=== PATIENT | female | born 1955 | race Caucasian/White ===

== ENCOUNTER → 2016-05-18 | Outpatient (CLI) | payer MEDICARE, MEDICAID ==
[~2016-05-18] MED LIST: ALPRAZOLAM0.5 MG PO; ARIPIPRAZOLE5 MG PO; ASPIRIN LO-DOSE81 MG PO; BACTRIM DS1 TAB PO; CARAFATE1 GM PO; CHANTIX1 MG PO; DILAUDID 4MG4 MG PO; FETZIMA40 MG PO; FLOXIN10 ML OTIC; PERCOCET 5-3251 EACH PO; PROTONIX40 MG PO; ROXICODONE 5MG (5 MG PO; TOPROL XL25 MG PO; ZOCOR20 MG PO; ZOFRAN ODT4 MG SL
[2016-05-18 13:43] LABS: CREATININE 0.8 mg/dL (0.5-1.1)
[2016-05-18 13:44] LABS: ESTIMATED GFR (MDRD EQUATION) > 60
== END | disposition disaster alternative care site (69) ==
LOC: GLAB 12:51
PROVIDERS: Otolaryngology
DX: H61.891 Other specified disorders of right external ear (principal)
CPT/HCPCS: Q9967

== ENCOUNTER → 2016-09-13 | Day surgery (SDC) | payer MEDICARE, MEDICAID ==
[~2016-09-13] VITALS: Ht 161.3 cm; Wt 84.0 kg
--- NOTE | ~2016-09-13 | OR ---
PATIENT'S NAME: [facility] AGE: 61 Y [address] ROOM: [place] [address] LOCATION: [facility] [place] ADMIT DATE: 09/13/2016 OR/Procedure Report DISCHARGE DATE: FAMILY PHYSICIAN: Christen Mcdonough MD ATTENDING PHYSICIAN: TAMI EMMANUEL SURGEON: Tami Emmanuel MD BRICK CLEANER: Ean Pineda. DATE OF PROCEDURE: 09/13/2016 PREOPERATIVE DIAGNOSES: 1. Right chronic mastoiditis. 2. Right chronic otitis externa. 3. 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 POSTOPERATIVE DIAGNOSES: 1. Right chronic mastoiditis. 2. Right chronic otitis externa. 3. 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 PROCEDURE: 1. Right modified radical canal wall down tympanomastoidectomy. 2. Right canal plasty. 3. Right meatoplasty. 4. Three hours of NIM monitoring of the right facial nerve. ANESTHESIA: General endotracheal. COMPLICATIONS: None. ESTIMATED BLOOD LOSS: 50 mL. FINDINGS: 1. Extensive erosion of the inferior auditory canal towards the facial nerve and jugular bulb including a portion of the tip of the mastoid and entering into the hypotympanum. 2. Facial nerve was not violated during the procedure. 3. Chorda tympani was identified and left intact. 4. Tympanic membrane was raised, but not otherwise violated, and there was no perforation. 5. There was no evidence of cholesteatoma aditus ad antrum, middle ear, or mastoid cavity. SPECIMEN: Right mastoid contents. INDICATIONS: The patient is a 61-year-old female who has been followed in PATIENT'S NAME: [facility] AGE: 61 Y [address] ROOM: [place] [address] LOCATION: [facility] [place] ADMIT DATE: 09/13/2016 OR/Procedure Report DISCHARGE DATE: FAMILY PHYSICIAN: Christen Mcdonough MD ATTENDING PHYSICIAN: TAMI EMMANUEL clinic for a period of time with the chronic right otitis externa. She was found to have significant purulent debris as well as necrotic sequestra of bone and an eroded inferior auditory canal. This failed management with outpatient antibiotics and topical antibiotics. This also returned as nonmalignant on biopsy. Given its chronicity and concern for future rotation, we decided to perform surgery as listed above and we did describe the risks, benefits, and alternatives and she provided informed consent. She was identified to have an oxygen saturation hovering in the 88% to 89% range in the preoperative area. She does have a history of smoking; however, we did offer to postpone her surgery and optimize for pulmonary health. She desired to the risk and possible need for ventilation postoperatively as well as inpatient admission to have the surgery done today and we elected to proceed after thorough discussion. DESCRIPTION OF PROCEDURE: The patient was brought from the preoperative area to the operating suite and placed on table supine position. All pressure points were padded. Time-out was performed correctly identifying the patient and the procedure. General endotracheal anesthesia was initiated and the patient was rotated 180 degrees counterclockwise. The ear canal was approached non-sterilely with microscope cleansed of cerumen and purulent debris, which was found once again in the inferior canal. Injection of 1% lidocaine with epinephrine was performed in 3 locations at the bony cartilaginous junction. Injection was then performed posterior to the ear in the postauricular incision area as well as along the zygomatic lead. She was then prepped and draped in the usual sterile fashion. We began with postauricular incision, which was carried out with a 15 blade, and then cautery down to the level of the temporoparietal fascia, this was carried forward to the level of the auditory canal. A #7 shaped incision was made through the periosteum overlying the mastoid bone itself and this was elevated with periosteal elevator. We returned our attention to the external auditory canal with microscope and superior and inferior canal incisions as well as horizontal incision was made preserving the bony annulus, but incising into the depths of the inferior canal erosion. The ear was elevated forward and held into place thereafter with a Lio drain through the ear and mastoid area. Retraction was placed as necessary and we began with mastoidectomy. Using a #6 cutting moises, a wide mastoidectomy was performed, initially preserving the canal wall, but eventually debriding the canal wall down to the level of the incus buttress. The incus was positively identified. Overall, the mastoid cells appeared healthy the majority of the mastoid until we reached the inferior portion of the mastoid tip. This area was debrided fully with the cutting moises and this extended into the canal erosion. Significant amounts of granulation tissue, purulence, and sequestered bone were identified and removed. The entire area was cleansed of these areas of debris and sent for specimen. We thinned out the bone of the inferior auditory canal to the PATIENT'S NAME: ASHOK [facility] AGE: 61 Y [address] ROOM: [place], [place] [address] LOCATION: [facility] [place] ADMIT DATE: 09/13/2016 OR/Procedure Report DISCHARGE DATE: FAMILY PHYSICIAN: Christen Mcdonough MD ATTENDING PHYSICIAN: TAMI EMMANUEL level of the soft tissue posterior to the TMJ as well as overlying the jugular bulb. The bulb itself was not identified nor violated. We did identify the facial nerve at the stylomastoid foramen and this was left intact. Once all these areas had been debrided with a cutting moises, a rufino moises was used #4 to lightly sand away the remaining unhealthy areas of bone. The tympanic membrane was elevated out of its bony annulus and the chorda tympani nerve identified and preserved. This area was debrided of necrotic bone as well, which was found in the hypotympanum. There was no evidence of any point of the standard cholesteatoma. After all this had been performed, thorough irrigation was performed. After cleansing the area, hemostasis was achieved with bipolar. A large temporoparietal fascia graft was harvested, dried, and pressed on the back table and then placed into the mastoid bowl in an underlay fashion on the tympanic membrane overlying the most denuded portions of the inferior auditory canal as well as overlying the aditus ad antrum entrance and incus buttress. After this, a large piece of MeroGel was placed both with some packing underneath as well as above this area and this was infused with Cortisporin drops. Following this, a meatoplasty was performed by removing cartilage posteriorly making incisions through the external auditory canal to widen the canal significantly and then allowing the soft tissue flap to lay within the inferior canal and mastoid bowl obliterating the portion of the mastoid bowl itself. The posterior incision was closed with 3-0 Vicryl sutures deep and a 5-0 Monocryl suture in a running subcuticular fashion followed by skin glue. The external auditory canal was packed with a mupirocin soaked Vaseline gauze followed by Titus dressing. The patient was returned to the care of Anesthesia, cleansed, extubated, and returned to the recovery room in stable condition. After surgery, the facial nerve was found to be fully intact in the Postoperative Unit. MD DOUG CARRILLO/nighat /[id number] d: 09/14/16 0218 t: 09/14/16 1117, OPERATIVE SUMMARY
== END | disposition disaster alternative care site (69) ==
LOC: GPOC 09-10 09:00 → GSDC 05:40
PROC: 0NR507Z Replacement of Right Temporal Bone with Autologous Tissue Substitute, Open Approach (ICD-10-PCS; principal; 2016-09-13)
PROC: 09Q3XZZ Repair Right External Auditory Canal, External Approach (ICD-10-PCS; 2016-09-13)
DX: H70.11 Chronic mastoiditis, right ear (principal); H60.61 Unspecified chronic otitis externa, right ear; M85.88 Other specified disorders of bone density and structure, other site; M19.90 Unspecified osteoarthritis, unspecified site; K21.9 Gastro-esophageal reflux disease without esophagitis; E78.00 Pure hypercholesterolemia, unspecified; I10 Essential (primary) hypertension; J44.9 Chronic obstructive pulmonary disease, unspecified; F32.9 Major depressive disorder, single episode, unspecified; F41.9 Anxiety disorder, unspecified; E78.5 Hyperlipidemia, unspecified; F17.210 Nicotine dependence, cigarettes, uncomplicated; Z85.44 Personal history of malignant neoplasm of other female genital organs; Z90.49 Acquired absence of other specified parts of digestive tract; Z98.890 Other specified postprocedural states; Z79.82 Long term (current) use of aspirin; Z79.899 Other long term (current) drug therapy; Z88.8 Allergy status to other drugs, medicaments and biological substances
CPT/HCPCS: J0171; J0690; J2001; J3010; J7120